=== PATIENT | male | born 2005 | race Caucasian/White ===

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

== ENCOUNTER → 2024-03-31 | Outpatient (CLI) | payer OTHER | LOC: COL.CARD 09:46 | DX: R00.2 Palpitations (principal) ==